=== PATIENT | male | born 1955 | race Caucasian/White ===

== ENCOUNTER → 2017-05-26 | Outpatient (CLI) | payer OTHER | LOC: CIMAGING 13:28 | PROVIDERS: ATTEND Internal Medicine Critical Care Medicine | DX: J98.4 Other disorders of lung (principal) | CPT/HCPCS: 71020-PO ==

== ENCOUNTER → 2017-10-06 | Outpatient (CLI) | payer OTHER | LOC: BMCIMAGING 10:12 | PROVIDERS: ATTEND Podiatrist Foot & Ankle Surgery | DX: M19.072 Primary osteoarthritis, left ankle and foot (principal) ==

== ENCOUNTER → 2017-10-14 | Outpatient (CLI) | payer OTHER | LOC: CIMAGING 09:13 | PROVIDERS: ATTEND Internal Medicine Critical Care Medicine | DX: J21.9 Acute bronchiolitis, unspecified (principal) | CPT/HCPCS: 71250-PO ==

== ENCOUNTER 2017-12-07 07:20 | Day surgery (SDC) | payer OTHER ==
[2017-12-07] MEDS ORDERED: NS 1,000 ML IV ONE (07:31)
[2017-12-07] MEDS ORDERED: DIAZEPAM 5 MG TAB PO ONE (07:31)
[2017-12-07] MEDS ORDERED: FAMOTIDINE 20 MG TAB PO ONE (07:31)
[2017-12-07] MEDS ORDERED: diphenhydrAMINE 25 MG CAP PO ONE (07:31)
[2017-12-07] MEDS ORDERED: ASPIRIN EC 325 MG TAB PO ONE (07:31)
[2017-12-07 08:07] LABS: PLATELET COUNT 287 10^3/uL (150-400)
--- NOTE | 2017-12-07 08:14 | CPEKG ---
Heart Rate: 67 RR Interval: 896 P-R Interval: 152 QRSD Interval: 100 QT Interval: 408 QTC Interval: 431 P [place]: 63 QRS [place]: -75 T Wave [place]: 43 EKG Severity - ABNORMAL ECG - EKG Impression: SINUS RHYTHM EKG Impression: LEFT ANTERIOR FASCICULAR BLOCK Electronically Signed By: Jonathan Sanders 11-Dec-2017 10:28:50
[2017-12-07 08:23] LABS: INR 1.04 (0.83-1.16); PROTIME(PATIENT) 13.8 SEC (12.0-15.0)
[2017-12-07] MEDS ORDERED: LIDOCAINE 1% 300 MG/30 ML SDV ONE (08:39)
[2017-12-07] MEDS ORDERED: fentaNYL 100 MCG/2 ML INJ ONE (08:39)
[2017-12-07] MEDS ORDERED: IOPAMIDOL (ISOVUE-370) 150 ML BTL IV ONE (08:39)
[2017-12-07] MEDS ORDERED: MIDAZOLAM 2 MG/2 ML VIAL ONE (08:39)
--- NOTE | 2017-12-07 09:25 | PDHPUP ---
History & Physical Update H&P update statement: This history and physical update is based on an assessment of the patient which was completed after admission or registration (within 24 hours), but prior to the surgery/procedure. 62 year old male with exertional chest pain. H&P update: H&P reviewed & patient examined, no change in patient's condition since H&P completed
--- NOTE | 2017-12-07 09:26 | PDPROPOC ---
Sedation Plan of Care Sedation Plan of Care: vital signs stable, mental status noted, patient educated of risks, benefits, alternatives, patient can tolerate sedation ASA Classification: ASA 2 Planned drugs: fentanyl, midazolam Mallampati Score: Class 2 Mallampati Reference Image:
[2017-12-07] MEDS ORDERED: ATROPINE SULFATE 1 MG/10 ML SYR ONE (10:31)
[2017-12-07] MEDS ORDERED: HYDROCODONE/APAP 5/325 TAB PO PRN (10:39)
[2017-12-07] MEDS ORDERED: NITROGLYCERIN 0.4 MG BTL SL PRN (10:39)
[2017-12-07] MEDS ORDERED: ATROPINE SULFATE 1 MG/10 ML SYR IVP PRN (10:39)
[2017-12-07] MEDS ORDERED: OXYCODONE/APAP 5/325 TAB PO PRN (10:39)
[2017-12-07] MEDS ORDERED: ONDANSETRON 4 MG/2 ML VIAL IVP PRN (10:39)
--- NOTE | 2017-12-07 11:00 | CPIP ---
[f rep st] INVASIVE CARDIAC PROCEDURE DATE OF PROCEDURE: 12/07/2017 INDICATIONS FOR PROCEDURE: Patient with complaints of exertional chest pain progressing to pain at r est, coupled with an abnormal exercise treadmill stress test, developing 5/10 nonradiating substernal chest discomfort with exertion coupled with 1.[address] segment depressions with exertion. His pain r esolved at 3 minutes into the recovery phase. In the setting of progressive exertional chest discomf ort, the patient was recommended for left heart catheterization. PROCEDURES PERFORMED: 1. Coronary angiography. 2. Right coronary angiography. 3. Left ventriculogram. 4. Right common femoral artery angiography. PROCEDURE IN DETAIL: After informed consent was obtained, the patient was brought to the cardiac cat heterization lab where he was prepped and draped in a sterile fashion. Using 1 % lidocaine, the righ t groin was anesthetized. Using the modified Seldinger technique with a micropuncture set, the right common femoral artery was cannulated without complication. A JL4 catheter was used to take images o f the left coronary anatomy in multiple projections. JL4 catheter was exchanged over a guidewire for JR4 catheter. JR4 catheter was used to take images of the right coronary anatomy in multiple projec tions. JR4 catheter was removed over a guidewire for an angled pigtail catheter. Angled pigtail cat heter was used to perform left ventriculogram. LVEDP was assessed. Aortic valve gradient on pullbac k was assessed. Catheter was removed without complications over a guidewire. FINDINGS: 1. Left main normal size and caliber, bifurcates into left anterior descending coronary artery. The re is no evidence of coronary disease within the left main. 2. Left anterior descending artery gives rise to a moderate-sized first diagonal branch. There is n o evidence of coronary disease within the LAD or diagonal branch. 3. Circumflex artery is a nondominant vessel. There is no evidence of coronary disease within the c ircumflex. 4. Right coronary artery is a dominant vessel that bifurcates into a PDA and PLV branch. There is n o evidence of coronary disease within the right coronary artery. HEMODYNAMICS: LVEF 60% to 65%. LVEDP 14 mmHg. Aortic valve gradient none. CONCLUSION: 1. Normal coronary arteries. 2. Normal left ventricular function and normal hemodynamics with left ventricular end-diastolic pres sure of 14 mmHg. PLAN: The patient will recover in the CVC. He will be discharged home. /[id number]/MODL
== END 2017-12-07 17:18 | disposition home or self-care (01) ==
LOC: FCATH 07:20
PROVIDERS: ATTEND Internal Medicine Cardiovascular Disease
DX: R07.9 Chest pain, unspecified (principal); R94.39 Abnormal result of other cardiovascular function study; I44.4 Left anterior fascicular block; K21.9 Gastro-esophageal reflux disease without esophagitis; Z85.46 Personal history of malignant neoplasm of prostate; Z80.42 Family history of malignant neoplasm of prostate
CPT/HCPCS: J0461; J1644; J2250; J3010; Q9967